=== PATIENT | male | born 1950 | race Asian ===

== ENCOUNTER 2021-02-16 10:26 | Outpatient (CLI) | payer OTHER ==
[2021-02-16 10:59] LABS: PLATELET COUNT 237 K/uL (142-355)
[2021-02-16 11:46] LABS: POTASSIUM 3.9 mmol/L (3.6-5.2); SODIUM 136 mmol/L (136-145)
== END 2021-02-16 19:42 | disposition home or self-care (01) ==
LOC: LABW 10:26
PROVIDERS: ATTEND Internal Medicine
DX: Z00.00 Encounter for general adult medical examination without abnormal findings (principal); Z12.5 Encounter for screening for malignant neoplasm of prostate; Z79.899 Other long term (current) drug therapy
CPT/HCPCS: 36415; 80053; 80061; 81000; 84153; 84439; 84443; 85027